=== PATIENT | male | born 1995 | race Caucasian/White ===

== ENCOUNTER 2016-12-16 06:00 | Emergency (ER) | payer SELFPAY ==
--- NOTE | 2016-12-16 06:29 | ED Physician Chart ---
Chief Complaint/HPI - Patient Information Date Seen:: 12/16/16 Time Seen:: 06:10 Chief Complaint:: Back pain History of Present Illness:: 21-year-old male with history of low back pain and slipped disc confirmed on MRI last year, complains of acute, constant, worsening, aching, radiating to the left leg, low back pain that started yesterday. Denies any mechanism of injury. Hasn't taken anything for the pain. Denies numbness, tingling, urinary or fecal incontinence, urinary or fecal retention, fevers. Allergies:: Allergies Allergy/AdvReac Type Severity Reaction Status Date / Time No Known Allergies Allergy Verified 02/27/16 16:58 Historian:: Patient Review:: Nurse's Note Reviewed Review of Systems - Review of Systems Other: Complete system review otherwise unremarkable except as noted in history of present illness. Past Medical History - Past Medical History Past Medical History: Other (low back pain (slipped disc)) Family History: None Social History: Non Smoker, No Alcohol, No Drug Use, Employed Surgical History: None Psychiatricy History: None Medication: None Family Medical History - Family Member Mother History Unknown: Yes Ethnicity: Physical Exam - Physical Examination Other:: INITIAL VITAL SIGNS: Reviewed by me GENERAL: Alert and interactive. No acute distress HEAD: Head is normocephalic and atraumatic EYES: EOMI. PERRL. No scleral icterus. No conjunctival injection ENT: Moist mucous membranes. NECK: Supple. No masses. Full range of motion RESPIRATORY: No tachypnea. Clear breath sounds bilaterally. No wheezing, rales, or rhonchi CV: Regular rate and rhythm. No murmurs, rubs, or gallops ABDOMEN: Soft, non-distended, non-tender. No guarding. No rebound. No masses. EXTREMITIES: No deformity. No cyanosis. No edema. SKIN: Warm and dry. No obvious rashes. NEUROLOGIC: Alert and oriented. Face is symmetric. Speech is normal. Moves all extremities equally. Motor and sensory distally intact. ED Septic Shock - . Is Septic Shock (SBP<90, OR Lactate>4 mmol\L) present?: No Reassessment (Disposition) - Reassessment Reassessment:: Patient apparently has had MRI done last year showing bulging disc/slipped disc. He says he's had similar pain last year. There is no mechanism of injury. I offered imaging the patient declined. Given intramuscular Toradol and Decadron. Given prescription for ibuprofen. Recommend follow-up with primary care for possible physical therapy. Work excuse given. Return to ER precautions given. Patient says he understands and agrees. Blood pressure was noted to be elevated over 120/80. There were no signs of hypertension. Discussed the findings with the patient and recommended that the patient follow up with the primary care physician regarding the elevated blood pressure. Reassessment Condition:: Improved - Diagnosis Diagnosis:: Acute low back pain/sciatica radiating down left leg Elevated blood pressure without the diagnosis of hypertension - Aftercare/Follow up Instructions Aftercare/Follow-Up Instructions:: Counseled pt regarding lab results/diagnosis & need follow up, Refer to Discharge Instructions Medication Prescribed:: Ibuprofen - Patient Disposition Discharge/Transfer:: Home Time:: 06:36 Condition at Disposition:: Improved ED Discharge Plan - Patient Disposition Admit/Discharge/Transfer: PT DISCHARGED HOME Condition at Disposition: Improved Instructions: Sciatica, [id number]
[2016-12-16] MEDS ORDERED: Dexamethasone Sodium Phos 10 mg/mL PF Vial ONE (06:37)
[2016-12-16] MEDS: Dexamethasone Sodium Phos 4 mg/mL Vial IM STA (06:45)
== END 2016-12-16 07:04 | disposition home or self-care (01) ==
LOC: ER 06:00
DX: M54.5 Low back pain (principal); R03.0 Elevated blood-pressure reading, without diagnosis of hypertension
CPT/HCPCS: 99284; 96372 ×2; J1885; Z7502

== ENCOUNTER 2017-02-23 07:58 | Emergency (ER) | payer MEDICAID ==
--- NOTE | 2017-02-23 08:25 | ED Physician Chart ---
ED Chief Complaint/HPI - Patient Information Date Seen:: 02/23/17 Time Seen:: 08:20 Chief Complaint:: pharyngitis, cold symptoms History of Present Illness:: location: general quality: pharyngitis severity: mild duration: couple of days context: pt with cold symptoms for last few days. mild sore throat since yesterday. girlfriend was diagnosed with strep throat and given antibiotics. says he has kissed her several times when she had active infection and he now feels like he is having the same symptoms. some rhinorrhea. mild sore throat. no other pain complaints. mod factors: none assoc s/s: none hx from pt Allergies:: Allergies Allergy/AdvReac Type Severity Reaction Status Date / Time No Known Allergies Allergy Verified 02/23/17 08:17 Historian:: Patient Review:: Nurse's Note Reviewed ED Review of Systems - Review of Systems General/Constitutional: No fever, No chills, No weight loss, No weakness, No diaphoresis, No edema, No loss of appetite Skin: No skin lesions, No rash, No bruising Head: No headache, No light-headedness Eyes: No loss of vision, No pain, No diplopia ENT: No earache, No nasal drainage, Sore throat, No tinnitus Neck: No neck pain, No swelling, No thyromegaly, No stiffness, No mass noted Cardio Vascular: No chest pain, No palpitations, No PND, No orthopnea, No edema Pulmonary: No SOB, No cough, No sputum, No wheezing GI: No nausea, No vomiting, No diarrhea, No pain, No melena, No hematochezia, No constipation, No hematemesis G/U: No dysuria, No frequency, No hematuria Musculoskeletal: No bone or joint pain, No back pain, No muscle pain Endocrine: No polyuria, No polydipsia Psychiatric: No prior psych history, No depression, No anxiety, No suicidal ideation Hematopoietic: No bruising, No lymphadenopathy Allergic/Immuno: No urticaria, No angioedema Neurological: No syncope, No focal symptoms, No weakness, No paresthesia, No headache, No seizure, No dizziness, No confusion, No vertigo ED Past Medical History - Past Medical History Past Medical History: No significant medical hx Family History: None Social History: Smoker, No Alcohol, No Drug Use, Single, Lives With Parents Surgical History: None Psychiatricy History: None Medication: None Family Medical History - Family Member Mother History Unknown: Yes Ethnicity: ED Physical Exam - Physical Examination General/Constitutional: Awake, Well-developed, well-nourished, Alert, No distress, GCS 15, Non-toxic appearing, Ambulatory Head: Atraumatic Eyes: Lids, conjuctiva normal, PERRL, EOMI Skin: Nl inspection, No rash, No skin lesions, No ecchymosis, Well hydrated, No lymphadenopathy ENMT: External ears, nose nl, Nasal exam nl, Lips, teeth, gums nl, Oropharynx nl (mild erythema at oropharynx, no tonsillar enlargement, no exudate) Neck: Nontender, Full ROM w/o pain, No JVD, No nuchal rigidity, No bruit, No mass (no lymph nodes at neck), No stridor Respiratory: Nl effort/Exclusion, Clear to Auscultation, No Wheeze/Rhonchi/Rales Cardio Vascular: RRR, No murmur, gallop, rubs, NL S1 S2 GI: No tenderness/rebounding/guarding : No CVA tenderness Extremities: No tenderness or effusion, Full ROM, normal strength in all extremities, No edema, Normal digits & nails Neuro/Psych: Alert/oriented Misc: Normal back, No paraspinal tenderness ED Assessment - Assessment General Assessment: pt stable while in ER medical decision making: pt with URI symptoms at this time his symptoms do not show obvious/overt signs of strep throat. pt with exposure to pt with strep throat. will give therapeutic course of pencillin as pt has had close contact with girlfriend with strep throat. girlfriend began treatment one or two days ago. now pt with what he says are developing symptoms. pt is advised to FU closely with primary care physician. pt says she understands and will follow up. ED Septic Shock - . Is Septic Shock (SBP<90, OR Lactate>4 mmol\L) present?: No ED Reassessment (Disposition) - Reassessment Reassessment Condition:: Unchanged - Aftercare/Follow up Instructions Aftercare/Follow-Up Instructions:: Counseled pt regarding lab results/diagnosis & need follow up Medication Prescribed:: penicillin 500mg po TID x 10 days - Patient Disposition Discharge/Transfer:: Home Condition at Disposition:: Stable
== END 2017-02-23 08:50 | disposition home or self-care (01) ==
LOC: ER 07:58
DX: J02.9 Acute pharyngitis, unspecified (principal); F17.200 Nicotine dependence, unspecified, uncomplicated
CPT/HCPCS: Z7502

== ENCOUNTER 2017-06-22 10:01 | Emergency (ER) | payer MEDICAID ==
[2017-06-22] MEDS ORDERED: Acetaminophen 500 MG TAB PO ONE (10:17)
[2017-06-22] MEDS ORDERED: Acetaminophen 500 MG TAB ONE (10:24)
--- NOTE | 2017-06-22 10:24 | ED Physician Chart ---
ED Chief Complaint/HPI - Patient Information Date Seen:: 06/22/17 Time Seen:: 10:20 Chief Complaint:: HEAD TRAUMA History of Present Illness:: THIS IS A 22 YO MALE WHO STATES THAT HE SUSTAINED AN INJURY TO THE BACK OF HIS HEAD WHILE WORKING LAST NIGHT. HE DENIES LOC BUT HAS SOME DIZZINESS AND PAIN IN THE AREA OF THE LUMP HE NOW HAS ON THE BACK OF HIS HEAD. HE DENIES ALL OTHER MEDICAL PROBLEMS. Allergies:: Allergies Allergy/AdvReac Type Severity Reaction Status Date / Time No Known Allergies Allergy Verified 02/23/17 08:17 Vitals:: Vital Signs - 8 hr 06/22/17 10:13 Temp 98.1 F HR 64 RR 16 BP 129/87 O2 Sat % 99 Historian:: Patient Review:: Nurse's Note Reviewed ED Review of Systems - Review of Systems General/Constitutional: No fever, No chills, No weight loss, No weakness, No diaphoresis, No edema, No loss of appetite Skin: No skin lesions, No rash, No bruising Head: No headache, Light headed Eyes: No loss of vision, No pain, No diplopia ENT: No earache, No nasal drainage, No sore throat, No tinnitus Neck: No neck pain, No swelling, No thyromegaly, No stiffness, No mass noted Cardio Vascular: No chest pain, No palpitations, No PND, No orthopnea, No edema Pulmonary: No SOB, No cough, No sputum, No wheezing GI: No nausea, No vomiting, No diarrhea, No pain, No melena, No hematochezia, No constipation, No hematemesis G/U: No dysuria, No frequency, No hematuria Musculoskeletal: No bone or joint pain, No back pain, No muscle pain Endocrine: No polyuria, No polydipsia Psychiatric: No prior psych history, No depression, No anxiety, No suicidal ideation Hematopoietic: No bruising, No lymphadenopathy Allergic/Immuno: No urticaria, No angioedema Neurological: No syncope, No focal symptoms, No weakness, No paresthesia, No headache, No seizure, No dizziness, No confusion, No vertigo ED Past Medical History - Past Medical History Obtainable: Yes Past Medical History: No significant medical hx Family History: None Social History: Smoker, Alcohol, Illicit Drug Use, Employed Surgical History: None Psychiatricy History: None Medication: Reviewed Family Medical History - Family Member Mother History Unknown: Yes Ethnicity: Living Status: Still Living ED Physical Exam - Physical Examination General/Constitutional: Awake, Well-developed, well-nourished, Alert, No distress, GCS 15, Non-toxic appearing, Ambulatory Head: Atraumatic (THERE IS A SMALL TENDER HEMATOMA OVER THE POSTERIOR PARIETAL AREA OF THE HEAD.) Eyes: Lids, conjuctiva normal, PERRL, EOMI Skin: Nl inspection, No rash, No skin lesions, No ecchymosis, Well hydrated, No lymphadenopathy ENMT: External ears, nose nl, Nasal exam nl, Lips, teeth, gums nl Neck: Nontender, Full ROM w/o pain, No JVD, No nuchal rigidity, No bruit, No mass, No stridor Respiratory: Nl effort/Exclusion, Clear to Auscultation, No Wheeze/Rhonchi/Rales Cardio Vascular: RRR, No murmur, gallop, rubs, NL S1 S2 GI: No tenderness/rebounding/guarding, No organomegaly, No hernia, Normal BS's, Nondistended, No mass/bruits, No McBurney tenderness : No CVA tenderness Extremities: No tenderness or effusion, Full ROM, normal strength in all extremities, No edema, Normal digits & nails Neuro/Psych: Alert/oriented, DTR's symmetric, Normal sensory exam, Normal motor strength, Judgement/insight normal, Mood normal, Normal gait, No focal deficits Misc: Normal back, No paraspinal tenderness ED Assessment - Assessment General Assessment: CONTUSION OF THE HEAD ED Septic Shock - . Is Septic Shock (SBP<90, OR Lactate>4 mmol\L) present?: No - <6hrs of presentation: Vital Signs: Vital Signs - 8 hr 06/22/17 10:13 Temp 98.1 F HR 64 RR 16 BP 129/87 O2 Sat % 99 ED Reassessment (Disposition) - Reassessment Reassessment:: CONTUSION OF THE HEAD - Aftercare/Follow up Instructions Aftercare/Follow-Up Instructions:: Counseled pt regarding lab results/diagnosis & need follow up, Refer to Discharge Instructions, Counseled pt & family regarding lab results/diagnosis & need follow up - Patient Disposition Discharge/Transfer:: Home Condition at Disposition:: Improved ED Discharge Plan - Patient Disposition Admit/Discharge/Transfer: PT DISCHARGED HOME Condition at Disposition: Improved
[2017-06-22 10:47] LABS: URINE MICROSCOPIC INDICATED? YES; URINE SOURCE CLEAN C
[2017-06-22 10:50] LABS: % EOSINOPHILS 0.7 % (0.0-5.0); % LYMPHOCYTES 23.2 % (20.0-50.0); % MONOCYTES 10.1 % (2.0-10.0); BASOPHILE ABSOLUTE 0.1 Th/cumm (0-0.2); HEMATOCRIT 42.1 % (41.0-60); HEMOGLOBIN 14.6 gm/dL (12-16); LYMPHOCYTE ABSOLUTE 1.4 Th/cmm (1.5-3.0); MEAN CORPUSCULAR HEMOGLOBIN 30.1 pg (26.0-30.0); MEAN CORPUSCULAR HGB CONC 34.6 pg (28.0-36.0); MEAN PLATELET VOLUME 10.3 fl; MONOCYTE ABSOLUTE 0.6 Th/cmm (0.3-1.0); NEUTROPHILE ABSOLUTE 4.1 Th/cmm (1.8-8.0); PLATELET COUNT 138 Th/cmm (150-400); RED BLOOD COUNT 4.85 Mil/cmm (4.30-5.70); RED CELL DISTRIBUTION WIDTH 11.5 % (11.5-20.0); WHITE BLOOD COUNT 6.2 Th/cmm (4.8-10.8)
[2017-06-22 10:58] LABS: URINE BILIRUBIN NEGATIVE (NEGATIVE); URINE BLOOD NEGATIVE (NEGATIVE); URINE GLUCOSE (UA) NEGATIVE (NEGATIVE); URINE KETONE NEGATIVE (NEGATIVE); URINE LEUKOCYTE ESTERASE NEGATIVE (NEGATIVE); URINE NITRATE NEGATIVE (NEGATIVE); URINE PH 6.5 (4.6 - 8.0); URINE PROTEIN NEGATIVE (NEGATIVE)
[2017-06-22 10:59] LABS: URINE CLARITY CLEAR (CLEAR); URINE COLOR YELLOW
[2017-06-22 11:06] LABS: URINE BACTERIA FEW /hpf (NONE SEEN); URINE EPITHELIAL CELLS OCCASIONAL /lpf (FEW); URINE RBC NONE SEEN /hpf (0-5); URINE WBC 0-2 /hpf (0-5)
[2017-06-22 11:07] LABS: ALB/GLOB RATIO 1.9 (1.0-1.8); ALBUMIN 4.6 gm/dL (4.2-5.5); ALKALINE PHOSPHATASE 67 U/L (34-104); BILIRUBIN,TOTAL 1.5 mg/dL (0.3-1.0); BUN - UREA NITROGEN 11 mg/dL (7-25); CALCIUM SERUM 9.2 mg/dL (8.6-10.3); CHLORIDE 105 mEq/L (98-107); CREATININE - SERUM 0.6 mg/dL (0.7-1.3); GFR AFRICAN-AMERICAN > 60.0 ml/min (>90); GFR NON AFRICAN-AMERICAN > 60.0 ml/min; GLUCOSE 99 mg/dL (70-105); SGOT 14 U/L (13-39); SGPT/ALT 11 U/L (7-52); SODIUM SERUM 137 mEq/L (136-145)
[2017-06-22 11:50] LABS: AMPHETAMINE URINE NEGATIVE (NEGATIVE); BARBITURATES URINE NEGATIVE (NEGATIVE); BENZODIAZEPINES QUAL URINE NEGATIVE (NEGATIVE); CANNABINOID THC POSITIVE (NEGATIVE); COCAINE METABOLITE QUAL URINE NEGATIVE (NEGATIVE); METHADONE URINE NEGATIVE (NEGATIVE); METHAMPHETAMINES QUAL URINE NEGATIVE (NEGATIVE); OPIATES (MORPHINE) QUAL. URINE NEGATIVE (NEGATIVE); PHENCYCLIDINE (PCP) URINE NEGATIVE (NEGATIVE); TRICYCLICS (TCA) QUAL. URINE NEGATIVE (NEGATIVE)
--- NOTE | 2017-06-23 10:57 | Diagnostic Imaging Report ---
CT scan of the brain without contrast History: Trauma Total DLP equals 533 CTDI equals 29.1 Axial sections were obtained from the base of the skull to the vertex. There is a normal ventricular system size. No focal parenchymal lesions are seen. No evidence of any mass effect or shift of midline structures. No extra-axial masses or abnormal fluid collections. Impression: Negative examination.
== END 2017-06-22 12:15 | disposition home or self-care (01) ==
LOC: ER 10:01
DX: S00.93XA Contusion of unspecified part of head, initial encounter (principal); X58.XXXA Exposure to other specified factors, initial encounter; Y93.89 Activity, other specified; Y92.89 Other specified places as the place of occurrence of the external cause; Y99.8 Other external cause status
CPT/HCPCS: 36415-UA; 70450-TC; 80053-TC; 80307; 81001-TC; 84443-TC; 85025-TC; Z7610

== ENCOUNTER 2017-06-22 23:37 | Emergency (ER) | payer MEDICAID ==
--- NOTE | 2017-06-23 01:10 | ED Physician Chart ---
ED Chief Complaint/HPI - Patient Information Date Seen:: 06/23/17 Time Seen:: 00:30 Chief Complaint:: VOMITING History of Present Illness:: THIS IS A 22 YR MALE WHO WAS SEEN EARLY YESTERDAY IN THIS ER COMPLAINING OF HEAD PAIN FROM HITTING HIS HEAD WHILE WORKING AT [employer]. HE STATES THAT NOW HE IS CONCERNED ABOUT VOMITING AND LEFT LOWER BACK PAIN. HE STATES THAT HE HAD TACOS AND CASADIAS BEFORE VOMITING THIS MORNING. Allergies:: Allergies Allergy/AdvReac Type Severity Reaction Status Date / Time No Known Allergies Allergy Verified 06/23/17 00:12 Vitals:: Vital Signs - 8 hr 06/23/17 00:15 Temp 97.8 F HR 70 RR 18 BP 125/79 O2 Sat % 98 Historian:: Patient Review:: Nurse's Note Reviewed, Old Chart Reviewed ED Review of Systems - Review of Systems General/Constitutional: No fever, No chills, No weight loss, No weakness, No diaphoresis, No edema, No loss of appetite Skin: No skin lesions, No rash, No bruising Head: Headache, No light-headedness Eyes: No loss of vision, No pain, No diplopia ENT: No earache, No nasal drainage, No sore throat, No tinnitus Neck: No neck pain, No swelling, No thyromegaly, No stiffness, No mass noted Cardio Vascular: No chest pain, No palpitations, No PND, No orthopnea, No edema Pulmonary: No SOB, No cough, No sputum, No wheezing GI: Nausea, Vomiting, No diarrhea, No pain, No melena, No hematochezia, No constipation, No hematemesis G/U: No dysuria, No frequency, No hematuria Musculoskeletal: No bone or joint pain, Back pain, No muscle pain Endocrine: No polyuria, No polydipsia Psychiatric: No prior psych history, No depression, No anxiety, No suicidal ideation Hematopoietic: No bruising, No lymphadenopathy Allergic/Immuno: No urticaria, No angioedema Neurological: No syncope, No focal symptoms, No weakness, No paresthesia, No headache, No seizure, No dizziness, No confusion, No vertigo ED Past Medical History - Past Medical History Obtainable: Yes Past Medical History: No significant medical hx Family History: None Social History: Non Smoker, No Alcohol, No Drug Use, Employed Surgical History: None Psychiatricy History: None Medication: Reviewed Family Medical History - Family Member Mother History Unknown: Yes Ethnicity: Living Status: Still Living Hx Family Cancer: No Hx Family Coronary Artery Disease: No Hx Family Congestive Heart Failure: No Hx Family Hypertension: No Hx Family Stroke: No Hx Family Diabetes: No Hx Family Seizures: No Hx Family Dementia: No Hx Family HIV: No Hx Family Hepatitis: No Hx Family Psychiatric Problems: No ED Physical Exam - Physical Examination General/Constitutional: Awake, Well-developed, well-nourished, Alert, No distress, GCS 15, Non-toxic appearing, Ambulatory Head: Atraumatic Eyes: Lids, conjuctiva normal, PERRL, EOMI Skin: Nl inspection, No rash, No skin lesions, No ecchymosis, Well hydrated, No lymphadenopathy ENMT: External ears, nose nl, Nasal exam nl, Lips, teeth, gums nl Neck: Nontender, Full ROM w/o pain, No JVD, No nuchal rigidity, No bruit, No mass, No stridor Respiratory: Nl effort/Exclusion, Clear to Auscultation, No Wheeze/Rhonchi/Rales Cardio Vascular: RRR, No murmur, gallop, rubs, NL S1 S2 GI: No tenderness/rebounding/guarding, No organomegaly, No hernia, Normal BS's, Nondistended, No mass/bruits, No McBurney tenderness : No CVA tenderness Extremities: No tenderness or effusion, Full ROM, normal strength in all extremities, No edema, Normal digits & nails Neuro/Psych: Alert/oriented, DTR's symmetric, Normal sensory exam, Normal motor strength, Judgement/insight normal, Mood normal, Normal gait, No focal deficits Misc: Normal back, No paraspinal tenderness ED Labs/Radiology/EKG Results - Lab Results Results: Abnormal Lab Results 06/23/17 06/23/17 06/23/17 01:05 01:05 01:13 WBC 9.1 D RBC 4.73 Hgb 14.1 Hct 41.5 MCV 87.7 MCH 29.9 MCHC Differential 34.1 RDW 11.5 Plt Count 147 L MPV 11.7 Neutrophils % 67.4 Lymphocytes % 20.7 Monocytes % 10.3 H Eosinophils % 1.3 Basophils % 0.3 Sodium Potassium Chloride Carbon Dioxide Anion Gap BUN Creatinine Est GFR ( Amer) Est GFR (Non-Af Amer) BUN/Creatinine Ratio Glucose Calcium Total Bilirubin AST ALT Alkaline Phosphatase Total Protein Albumin Globulin Albumin/Globulin Ratio Urine Source CLEAN C Urine Color YELLOW Urine Clarity SLIGHT CLOUDY Urine pH 7.0 Ur Specific [place] 1.015 Urine Protein NEGATIVE Urine Glucose (UA) NEGATIVE Urine Ketones NEGATIVE Urine Blood SMALL H Urine Nitrate NEGATIVE Urine Bilirubin NEGATIVE Urine Urobilinogen 0.2 Ur Leukocyte Esterase NEGATIVE Urine RBC 10-25 H Urine WBC 2-5 H Ur Epithelial Cells RARE Uric Acid Crystals FEW Amorphous Sediment MODERATE PHOSPHATES Urine Bacteria FEW Urine Opiates Screen NEGATIVE Urine Methadone Screen NEGATIVE Ur Barbiturates Screen NEGATIVE Ur Tricyclics Screen NEGATIVE Ur Phencyclidine Scrn NEGATIVE Amphetamines Screen NEGATIVE U Methamphetamines Scrn NEGATIVE U Benzodiazepines Scrn NEGATIVE U Cocaine Metab Screen NEGATIVE U Cannabinoids Screen POSITIVE H 06/23/17 01:13 WBC RBC Hgb Hct MCV MCH MCHC Differential RDW Plt Count MPV Neutrophils % Lymphocytes % Monocytes % Eosinophils % Basophils % Sodium 137 Potassium 4.1 Chloride 106 Carbon Dioxide 25.2 Anion Gap 9.9 BUN 18 Creatinine 0.9 Est GFR ( Amer) > 60.0 Est GFR (Non-Af Amer) > 60.0 BUN/Creatinine Ratio 20.0 Glucose 94 Calcium 9.0 Total Bilirubin 0.9 AST 13 ALT 10 Alkaline Phosphatase 69 Total Protein 6.6 Albumin 4.3 Globulin 2.3 Albumin/Globulin Ratio 1.9 H Urine Source Urine Color Urine Clarity Urine pH Ur Specific [place] Urine Protein Urine Glucose (UA) Urine Ketones Urine Blood Urine Nitrate Urine Bilirubin Urine Urobilinogen Ur Leukocyte Esterase Urine RBC Urine WBC Ur Epithelial Cells Uric Acid Crystals Amorphous Sediment Urine Bacteria Urine Opiates Screen Urine Methadone Screen Ur Barbiturates Screen Ur Tricyclics Screen Ur Phencyclidine Scrn Amphetamines Screen U Methamphetamines Scrn U Benzodiazepines Scrn U Cocaine Metab Screen U Cannabinoids Screen - Radiology Results Results: lumbo sacral spine x-ray = nad ED Assessment - Assessment General Assessment: HEMATURIA POSSBLE RENAL STONE ED Septic Shock - . Is Septic Shock (SBP<90, OR Lactate>4 mmol\L) present?: No - <6hrs of presentation: Vital Signs: Vital Signs - 8 hr 06/23/17 00:15 Temp 97.8 F HR 70 RR 18 BP 125/79 O2 Sat % 98 ED Reassessment (Disposition) - Reassessment Reassessment:: RENAL STONE Reassessment Condition:: Improved - Diagnosis Diagnosis:: HEMATURIA RENAL STONE - Aftercare/Follow up Instructions Aftercare/Follow-Up Instructions:: Counseled pt regarding lab results/diagnosis & need follow up, Refer to Discharge Instructions, Counseled pt & family regarding lab results/diagnosis & need follow up - Patient Disposition Discharge/Transfer:: Home Condition at Disposition:: Improved ED Discharge Plan - Patient Disposition Admit/Discharge/Transfer: PT DISCHARGED HOME Condition at Disposition: Improved
[2017-06-23 01:28] LABS: % BASOPHILS 0.3 % (0.0-2.0); % EOSINOPHILS 1.3 % (0.0-5.0); % LYMPHOCYTES 20.7 % (20.0-50.0); % MONOCYTES 10.3 % (2.0-10.0); % NEUTROPHILS 67.4 % (40.0-80.0); EOSINOPHILE ABSOLUTE 0.1 Th/cmm (0.1-0.4); HEMATOCRIT 41.5 % (41.0-60); HEMOGLOBIN 14.1 gm/dL (12-16); LYMPHOCYTE ABSOLUTE 1.9 Th/cmm (1.5-3.0); MEAN CELL VOLUME 87.7 fl (80-99); MEAN CORPUSCULAR HEMOGLOBIN 29.9 pg (26.0-30.0); MEAN CORPUSCULAR HGB CONC 34.1 pg (28.0-36.0); MEAN PLATELET VOLUME 11.7 fl; MONOCYTE ABSOLUTE 0.9 Th/cmm (0.3-1.0); NEUTROPHILE ABSOLUTE 6.2 Th/cmm (1.8-8.0); PLATELET COUNT 147 Th/cmm (150-400); RED BLOOD COUNT 4.73 Mil/cmm (4.30-5.70); RED CELL DISTRIBUTION WIDTH 11.5 % (11.5-20.0); WHITE BLOOD COUNT 9.1 Th/cmm (4.8-10.8)
[2017-06-23 01:46] LABS: URINE MICROSCOPIC INDICATED? YES; URINE SOURCE CLEAN C
[2017-06-23 01:50] LABS: ALB/GLOB RATIO 1.9 (1.0-1.8); ALBUMIN 4.3 gm/dL (4.2-5.5); ALKALINE PHOSPHATASE 69 U/L (34-104); ANION GAP 9.9 (7.0-16.0); BILIRUBIN,TOTAL 0.9 mg/dL (0.3-1.0); BUN - UREA NITROGEN 18 mg/dL (7-25); CARBON DIOXIDE 25.2 mEq/L (21.0-31.0); CHLORIDE 106 mEq/L (98-107); CREATININE - SERUM 0.9 mg/dL (0.7-1.3); GFR AFRICAN-AMERICAN > 60.0 ml/min (>90); GFR NON AFRICAN-AMERICAN > 60.0 ml/min; GLUCOSE 94 mg/dL (70-105); POTASSIUM SERUM 4.1 mEq/L (3.5-5.1); SGOT 13 U/L (13-39); SGPT/ALT 10 U/L (7-52); SODIUM SERUM 137 mEq/L (136-145); TOTAL PROTEIN,SERUM 6.6 gm/dL (6.0-8.3)
[2017-06-23 01:51] LABS: URINE BILIRUBIN NEGATIVE (NEGATIVE); URINE BLOOD SMALL (NEGATIVE); URINE GLUCOSE (UA) NEGATIVE (NEGATIVE); URINE KETONE NEGATIVE (NEGATIVE); URINE LEUKOCYTE ESTERASE NEGATIVE (NEGATIVE); URINE NITRATE NEGATIVE (NEGATIVE); URINE PROTEIN NEGATIVE (NEGATIVE); URINE UROBILINOGEN 0.2 E.U./dL (0.2 - 1.0)
[2017-06-23 01:55] LABS: URINE COLOR YELLOW
[2017-06-23 01:56] LABS: URINE CLARITY SLIGHT CLOUDY (CLEAR)
[2017-06-23 01:57] LABS: URINE BACTERIA FEW /hpf (NONE SEEN); URINE EPITHELIAL CELLS RARE /lpf (FEW)
[2017-06-23 01:58] LABS: URINE AMORPHOUS SEDIMENT MODERATE PHOSPHATES (NONE SEEN)
[2017-06-23 02:10] LABS: AMPHETAMINE URINE NEGATIVE (NEGATIVE); BARBITURATES URINE NEGATIVE (NEGATIVE); BENZODIAZEPINES QUAL URINE NEGATIVE (NEGATIVE); CANNABINOID THC POSITIVE (NEGATIVE); COCAINE METABOLITE QUAL URINE NEGATIVE (NEGATIVE); METHADONE URINE NEGATIVE (NEGATIVE); METHAMPHETAMINES QUAL URINE NEGATIVE (NEGATIVE); OPIATES (MORPHINE) QUAL. URINE NEGATIVE (NEGATIVE); PHENCYCLIDINE (PCP) URINE NEGATIVE (NEGATIVE); TRICYCLICS (TCA) QUAL. URINE NEGATIVE (NEGATIVE)
--- NOTE | 2017-06-23 10:20 | Diagnostic Imaging Report ---
Exam: Lumbar sacral spine. HISTORY: Back pain. Findings: Views of lumbar sacral spine reviewed. The study demonstrates no evidence of fracture dislocation. The vertebral bodies of normal height with preserved intervertebral disc spaces. There is no evidence of spondylolysis or spondylolisthesis. No prevertebral soft tissue swelling is noted. IMPRESSION: Unremarkable examination of lumbosacral spine.
== END 2017-06-23 02:53 | disposition home or self-care (01) ==
LOC: ER 23:37
DX: R31.9 Hematuria, unspecified (principal); N20.0 Calculus of kidney
CPT/HCPCS: 99285; 96372 ×2; 36415; 80307; 85025; 80053; 72110; 81001; J1885; J0696

== ENCOUNTER 2017-10-15 22:11 | Emergency (ER) | payer MEDICAID ==
--- NOTE | 2017-10-15 22:51 | ED Physician Chart ---
ED Chief Complaint/HPI - Patient Information Date Seen:: 10/15/17 Time Seen:: 22:46 Chief Complaint:: Abdominal pain History of Present Illness:: 22 yo male had lower abdominal pain for 2 hours, without nausea or vomiting. Patient also stated bilateral scrotal pain and swelling. No fever. Patient was sexually active with his girlfriend. His last unprotected sexually intercourse was 3 days ago. Allergies:: Allergies Allergy/AdvReac Type Severity Reaction Status Date / Time No Known Allergies Allergy Verified 10/15/17 22:23 Vitals:: Vital Signs - 8 hr 10/15/17 22:20 Temp 97.9 F HR 80 RR 18 BP 121/70 O2 Sat % 98 ED Review of Systems - Review of Systems General/Constitutional: No fever Skin: No bruising Head: No headache Eyes: No pain ENT: No nasal drainage Neck: No neck pain Cardio Vascular: No chest pain Pulmonary: No SOB GI: No nausea, No vomiting Musculoskeletal: No bone or joint pain Neurological: No focal symptoms ED Past Medical History - Past Medical History Past Medical History: No significant medical hx Social History: Smoker, Alcohol, Illicit Drug Use (marijuana) Surgical History: None Family Medical History - Family Member Mother History Unknown: Yes Ethnicity: Living Status: Still Living Hx Family Cancer: No Hx Family Coronary Artery Disease: No Hx Family Congestive Heart Failure: No Hx Family Hypertension: No Hx Family Stroke: No Hx Family Diabetes: No Hx Family Seizures: No Hx Family Dementia: No Hx Family HIV: No Hx Family Hepatitis: No Hx Family Psychiatric Problems: No ED Physical Exam - Physical Examination General/Constitutional: Awake Head: Atraumatic Eyes: PERRL Skin: No ecchymosis ENMT: Nasal exam nl Neck: No nuchal rigidity Respiratory: No Wheeze/Rhonchi/Rales Cardio Vascular: RRR, No murmur, gallop, rubs, NL S1 S2 Other GI comments:: tenderness in suprapubic area Other comments:: No scrotal edema or nodule Extremities: normal strength in all extremities Neuro/Psych: No focal deficits ED Labs/Radiology/EKG Results - Lab Results Results: Laboratory Last Values WBC 8.6 Th/cmm (4.8-10.8) 10/15/17 23:00 RBC 4.80 Mil/cmm (4.30-5.70) 10/15/17 23:00 Hgb 14.6 gm/dL (12-16) 10/15/17 23:00 Hct 42.8 % (41.0-60) 10/15/17 23:00 MCV 89.3 fl (80-99) 10/15/17 23:00 MCH 30.5 pg (26.0-30.0) H 10/15/17 23:00 MCHC Differential 34.2 pg (28.0-36.0) 10/15/17 23:00 RDW 12.2 % (11.5-20.0) 10/15/17 23:00 Plt Count 187 Th/cmm (150-400) 10/15/17 23:00 MPV 10.8 fl 10/15/17 23:00 Neutrophils % 63.6 % (40.0-80.0) 10/15/17 23:00 Lymphocytes % 22.6 % (20.0-50.0) 10/15/17 23: Monocytes % 11.7 % (2.0-10.0) H 10/15/17 23: Eosinophils % 1.3 % (0.0-5.0) 10/15/17 23: Basophils % 0.8 % (0.0-2.0) 10/15/17 23:00 Sodium 139 mEq/L (136-145) 10/15/17 23:00 Potassium 4.2 mEq/L (3.5-5.1) 10/15/17 23:00 Chloride 105 mEq/L (98-107) 10/15/17 23: Carbon Dioxide 27.3 mEq/L (21.0-31.0) 10/15/17 23:00 Anion Gap 10.9 (7.0-16.0) 10/15/17 23:00 BUN 16 mg/dL (7-25) 10/15/17 23:00 Creatinine 0.8 mg/dL (0.7-1.3) 10/15/17 23:00 Est GFR ( Amer) > 60.0 ml/min (>90) 10/15/17 23: Est GFR (Non-Af Amer) > 60.0 ml/min 10/15/17 23:00 BUN/Creatinine Ratio 20.0 10/15/17 23: Glucose 84 mg/dL (70-105) 10/15/17 23:00 Calcium 8.9 mg/dL (8.6-10.3) 10/15/17 23:00 Total Bilirubin 0.4 mg/dL (0.3-1.0) 10/15/17 23:00 AST 12 U/L (13-39) L 10/15/17 23:00 ALT 10 U/L (7-52) 10/15/17 23:00 Alkaline Phosphatase 58 U/L (34-104) 10/15/17 23:00 Total Protein 6.6 gm/dL (6.0-8.3) 10/15/17 23:00 Albumin 4.1 gm/dL (4.2-5.5) L 10/15/17 23:00 Globulin 2.5 gm/dL 10/15/17 23:00 Albumin/Globulin Ratio 1.6 (1.0-1.8) 10/15/17 23:00 Lipase 31 U/L (11-82) 10/15/17 23:00 Urine Source RANDOM 10/15/17 22:45 Urine Color YELLOW 10/15/17 22:45 Urine Clarity CLEAR (CLEAR) 10/15/17 22:45 Urine pH 6.5 (4.6 - 8.0) 10/15/17 22:45 Ur Specific Imperial 1.025 (1.005-1.030) 10/15/17 22:45 Urine Protein NEGATIVE mg/dL (NEGATIVE) 10/15/17 22:45 Urine Glucose (UA) NEGATIVE mg/dL (NEGATIVE) 10/15/17 22:45 Urine Ketones NEGATIVE mg/dL (NEGATIVE) 10/15/17 22:45 Urine Blood NEGATIVE (NEGATIVE) 10/15/17 22:45 Urine Nitrate NEGATIVE (NEGATIVE) 10/15/17 22:45 Urine Bilirubin NEGATIVE (NEGATIVE) 10/15/17 22:45 Urine Urobilinogen 1.0 E.U./dL (0.2 - 1.0) 10/15/17 22:45 Ur Leukocyte Esterase NEGATIVE (NEGATIVE) 10/15/17 22:45 Urine RBC NONE SEEN /hpf (0-5) 10/15/17 22:45 Urine WBC 0-2 /hpf (0-5) 10/15/17 22:45 Ur Epithelial Cells OCCASIONAL /lpf (FEW) 10/15/17 22:45 Urine Bacteria OCCASIONAL /hpf (NONE SEEN) 10/15/17 22:45 Urine Opiates Screen NEGATIVE (NEGATIVE) 10/15/17 22:45 Urine Methadone Screen NEGATIVE (NEGATIVE) 10/15/17 22:45 Ur Barbiturates Screen NEGATIVE (NEGATIVE) 10/15/17 22:45 Ur Tricyclics Screen NEGATIVE (NEGATIVE) 10/15/17 22:45 Ur Phencyclidine Scrn NEGATIVE (NEGATIVE) 10/15/17 22:45 Amphetamines Screen NEGATIVE (NEGATIVE) 10/15/17 22:45 U Methamphetamines Scrn NEGATIVE (NEGATIVE) 10/15/17 22:45 U Benzodiazepines Scrn NEGATIVE (NEGATIVE) 10/15/17 22:45 U Cocaine Metab Screen NEGATIVE (NEGATIVE) 10/15/17 22:45 U Cannabinoids Screen POSITIVE (NEGATIVE) H 10/15/17 22:45 ED Assessment - Assessment General Assessment: Abdominal pain Substance abuse Assessment/Comments:: CBC, CMP UA, urine drug screen GC DNA probe Toradol 30mg IM D/c home F/u PCP or return to ER if symptoms worsen ED Septic Shock - . Is Septic Shock (SBP<90, OR Lactate>4 mmol\L) present?: No - <6hrs of presentation: Vital Signs: Vital Signs - 8 hr 10/15/17 22:20 Temp 97.9 F HR 80 RR 18 BP 121/70 O2 Sat % 98 ED Reassessment (Disposition) - Reassessment Reassessment Condition:: Improved - Patient Disposition Discharge/Transfer:: Home ED Discharge Plan - Patient Disposition Admit/Discharge/Transfer: PT DISCHARGED HOME Condition at Disposition: Improved Instructions: Abdominal Pain, [id number]
[2017-10-15 23:06] LABS: URINE MICROSCOPIC INDICATED? YES; URINE SOURCE RANDOM
[2017-10-15 23:12] LABS: % BASOPHILS 0.8 % (0.0-2.0); % EOSINOPHILS 1.3 % (0.0-5.0); % LYMPHOCYTES 22.6 % (20.0-50.0); % MONOCYTES 11.7 % (2.0-10.0); % NEUTROPHILS 63.6 % (40.0-80.0); BASOPHILE ABSOLUTE 0.1 Th/cumm (0-0.2); EOSINOPHILE ABSOLUTE 0.1 Th/cmm (0.1-0.4); HEMATOCRIT 42.8 % (41.0-60); HEMOGLOBIN 14.6 gm/dL (12-16); LYMPHOCYTE ABSOLUTE 1.9 Th/cmm (1.5-3.0); MEAN CELL VOLUME 89.3 fl (80-99); MEAN CORPUSCULAR HEMOGLOBIN 30.5 pg (26.0-30.0); MEAN CORPUSCULAR HGB CONC 34.2 pg (28.0-36.0); MEAN PLATELET VOLUME 10.8 fl; NEUTROPHILE ABSOLUTE 5.5 Th/cmm (1.8-8.0); PLATELET COUNT 187 Th/cmm (150-400); RED CELL DISTRIBUTION WIDTH 12.2 % (11.5-20.0); WHITE BLOOD COUNT 8.6 Th/cmm (4.8-10.8)
[2017-10-15 23:32] LABS: URINE BILIRUBIN NEGATIVE (NEGATIVE); URINE BLOOD NEGATIVE (NEGATIVE); URINE GLUCOSE (UA) NEGATIVE (NEGATIVE); URINE KETONE NEGATIVE (NEGATIVE); URINE LEUKOCYTE ESTERASE NEGATIVE (NEGATIVE); URINE NITRATE NEGATIVE (NEGATIVE); URINE PH 6.5 (4.6 - 8.0); URINE PROTEIN NEGATIVE (NEGATIVE)
[2017-10-15 23:36] LABS: URINE CLARITY CLEAR (CLEAR); URINE COLOR YELLOW; URINE EPITHELIAL CELLS OCCASIONAL /lpf (FEW); URINE RBC NONE SEEN /hpf (0-5); URINE WBC 0-2 /hpf (0-5)
[2017-10-15 23:37] LABS: URINE BACTERIA OCCASIONAL /hpf (NONE SEEN)
[2017-10-15 23:45] LABS: ALB/GLOB RATIO 1.6 (1.0-1.8); ALBUMIN 4.1 gm/dL (4.2-5.5); ALKALINE PHOSPHATASE 58 U/L (34-104); ANION GAP 10.9 (7.0-16.0); BILIRUBIN,TOTAL 0.4 mg/dL (0.3-1.0); BUN - UREA NITROGEN 16 mg/dL (7-25); CALCIUM SERUM 8.9 mg/dL (8.6-10.3); CARBON DIOXIDE 27.3 mEq/L (21.0-31.0); CHLORIDE 105 mEq/L (98-107); CREATININE - SERUM 0.8 mg/dL (0.7-1.3); GFR AFRICAN-AMERICAN > 60.0 ml/min (>90); GFR NON AFRICAN-AMERICAN > 60.0 ml/min; GLUCOSE 84 mg/dL (70-105); LIPASE 31 U/L (11-82); POTASSIUM SERUM 4.2 mEq/L (3.5-5.1); SGOT 12 U/L (13-39); SGPT/ALT 10 U/L (7-52); SODIUM SERUM 139 mEq/L (136-145); TOTAL PROTEIN,SERUM 6.6 gm/dL (6.0-8.3)
[2017-10-15 23:53] LABS: AMPHETAMINE URINE NEGATIVE (NEGATIVE); BARBITURATES URINE NEGATIVE (NEGATIVE); BENZODIAZEPINES QUAL URINE NEGATIVE (NEGATIVE); CANNABINOID THC POSITIVE (NEGATIVE); COCAINE METABOLITE QUAL URINE NEGATIVE (NEGATIVE); METHADONE URINE NEGATIVE (NEGATIVE); METHAMPHETAMINES QUAL URINE NEGATIVE (NEGATIVE); OPIATES (MORPHINE) QUAL. URINE NEGATIVE (NEGATIVE); PHENCYCLIDINE (PCP) URINE NEGATIVE (NEGATIVE); TRICYCLICS (TCA) QUAL. URINE NEGATIVE (NEGATIVE)
== END 2017-10-16 00:55 | disposition home or self-care (01) ==
LOC: ER 22:11
DX: R10.30 Lower abdominal pain, unspecified (principal); N50.82 Scrotal pain; F17.200 Nicotine dependence, unspecified, uncomplicated; F12.90 Cannabis use, unspecified, uncomplicated
CPT/HCPCS: 99284; 96372; 36415; 80307; 85025; 83690; 80053; 81001; J1885; Z7502

== ENCOUNTER 2017-12-04 01:20 | Emergency (ER) | payer MEDICAID ==
--- NOTE | 2017-12-04 01:33 | ED Physician Chart ---
ED Chief Complaint/HPI - Patient Information Date Seen:: 12/04/17 Time Seen:: 01:31 Chief Complaint:: Right hand pain History of Present Illness:: 22 yo male had right hand pain and swelling after a car trunk lid hit his right hand about one day ago. He had weak right hand gripping due to pain and swelling. Allergies:: Allergies Allergy/AdvReac Type Severity Reaction Status Date / Time No Known Allergies Allergy Verified 10/15/17 22:23 ED Review of Systems - Review of Systems General/Constitutional: No fever, No chills Skin: Skin lesions Head: No headache Eyes: No pain ENT: No earache Neck: No neck pain Cardio Vascular: No chest pain Pulmonary: No SOB GI: No nausea, No vomiting Musculoskeletal: Bone or joint pain Neurological: No focal symptoms ED Past Medical History - Past Medical History Past Medical History: No significant medical hx Social History: Smoker, Alcohol, No Drug Use Surgical History: None Family Medical History - Family Member Mother History Unknown: Yes Ethnicity: Living Status: Still Living Hx Family Cancer: No Hx Family Coronary Artery Disease: No Hx Family Congestive Heart Failure: No Hx Family Hypertension: No Hx Family Stroke: No Hx Family Diabetes: No Hx Family Seizures: No Hx Family Dementia: No Hx Family HIV: No Hx Family Hepatitis: No Hx Family Psychiatric Problems: No ED Physical Exam - Physical Examination General/Constitutional: Awake Head: Atraumatic Eyes: PERRL ENMT: Nasal exam nl Neck: No nuchal rigidity Respiratory: Clear to Auscultation Cardio Vascular: RRR, No murmur, gallop, rubs, NL S1 S2 GI: No tenderness/rebounding/guarding Other Extremities comments:: Right hand tenderness and swelling in the ulnar half of the dorsal hand. Neuro/Psych: No focal deficits ED Labs/Radiology/EKG Results - Radiology Results Results: Right hand X ray: no evidence of acute fracture ED Assessment - Assessment General Assessment: Right hand contusion Assessment/Comments:: Right hand X ray Ibuprofen 800mg PO D/c home Ibuprofen 400mg q12h for 7 days F/u PCP or return to ER if symptoms worsen ED Septic Shock - . Is Septic Shock (SBP<90, OR Lactate>4 mmol\L) present?: No ED Reassessment (Disposition) - Reassessment Reassessment Condition:: Improved - Patient Disposition Discharge/Transfer:: Home ED Discharge Plan - Patient Disposition Admit/Discharge/Transfer: PT DISCHARGED HOME Condition at Disposition: Stable Instructions: Hand Contusion Additional Instructions: follow up with your primary medical doctor thomas
--- NOTE | 2017-12-04 08:33 | Diagnostic Imaging Report ---
Right hand 3 views Indication: Trauma Comparison: none Findings: No evidence of acute fracture or dislocation. No significant focal soft tissue swelling. 3 mm bone is seen within the first distal phalanx. Impression: No evidence of an acute fracture. In the setting of trauma, if clinical symptoms persist and there is continued concern for an occult fracture, follow up exams in 5-7 days is suggested.
== END 2017-12-04 02:42 | disposition home or self-care (01) ==
LOC: ER 01:20
DX: S60.221A Contusion of right hand, initial encounter (principal); M25.441 Effusion, right hand; F17.200 Nicotine dependence, unspecified, uncomplicated; W22.8XXA Striking against or struck by other objects, initial encounter; Y93.89 Activity, other specified; Y92.89 Other specified places as the place of occurrence of the external cause; Y99.8 Other external cause status
CPT/HCPCS: 73130-TC-RT; Z7502

== ENCOUNTER 2018-04-07 17:42 | Emergency (ER) | payer SELFPAY ==
--- NOTE | 2018-04-07 19:26 | ED Physician Chart ---
ED Chief Complaint/HPI - Patient Information Date Seen:: 04/07/18 Time Seen:: 17:54 Chief Complaint:: groin pain History of Present Illness:: groin pain Allergies:: Allergies Allergy/AdvReac Type Severity Reaction Status Date / Time No Known Allergies Allergy Verified 10/15/17 22:23 Vitals:: Vital Signs - 8 hr 04/07/18 17:54 Temp 98.7 F HR 97 RR 22 BP 122/85 O2 Sat % 99 Review:: Nurse's Note Reviewed ED Review of Systems - Review of Systems General/Constitutional: No fever, No chills, No weight loss, No weakness, No diaphoresis, No edema, No loss of appetite Skin: No skin lesions, No rash, No bruising Head: No headache, No light-headedness Eyes: No loss of vision, No pain, No diplopia ENT: No earache, No nasal drainage, No sore throat, No tinnitus Neck: No neck pain, No swelling, No thyromegaly, No stiffness, No mass noted Cardio Vascular: No chest pain, No palpitations, No PND, No orthopnea, No edema Pulmonary: No SOB, No cough, No sputum, No wheezing GI: No nausea, No vomiting, No diarrhea, No pain, No melena, No hematochezia, No constipation, No hematemesis G/U: Other (groin pain) Musculoskeletal: No bone or joint pain, No back pain, No muscle pain Endocrine: No polyuria, No polydipsia Psychiatric: No prior psych history, No depression, No anxiety, No suicidal ideation Hematopoietic: No bruising, No lymphadenopathy Allergic/Immuno: No urticaria, No angioedema Neurological: No syncope, No focal symptoms, No weakness, No paresthesia, No headache, No seizure, No dizziness, No confusion, No vertigo Family Medical History - Family Member Mother History Unknown: Yes Ethnicity: Living Status: Still Living Hx Family Cancer: No Hx Family Coronary Artery Disease: No Hx Family Congestive Heart Failure: No Hx Family Hypertension: No Hx Family Stroke: No Hx Family Diabetes: No Hx Family Seizures: No Hx Family Dementia: No Hx Family HIV: No Hx Family Hepatitis: No Hx Family Psychiatric Problems: No ED Assessment - Assessment General Assessment: patient eloped before examined. ED Septic Shock - . Is Septic Shock (SBP<90, OR Lactate>4 mmol\L) present?: No - <6hrs of presentation: Vital Signs: Vital Signs - 8 hr 04/07/ 17:54 Temp 98.7 F HR 97 RR 22 BP 122/85 O2 Sat % 99 ED Reassessment (Disposition) - Reassessment Reassessment Condition:: Unchanged - Diagnosis Diagnosis:: groin pain - Patient Disposition Discharge/Transfer:: Elope/AWOL Condition at Disposition:: Stable, Unchanged
== END 2018-04-07 19:15 | disposition left against medical advice (07) ==
LOC: ER 17:42
DX: R10.30 Lower abdominal pain, unspecified (principal)

== ENCOUNTER 2018-04-11 01:15 | Emergency (ER) | payer SELFPAY ==
[2018-04-11] MEDS ORDERED: Sulfamethoxazole/TMP 800/160mg Tab PO ONE (01:46)
[2018-04-11] MEDS ORDERED: Sulfamethoxazole/TMP 800/160mg Tab ONE (01:46)
--- NOTE | 2018-04-11 01:52 | ED Physician Chart ---
ED Chief Complaint/HPI - Patient Information Date Seen:: 04/11/18 Time Seen:: 01:30 Chief Complaint:: left groin pain History of Present Illness:: Patient's had left groin pain for 5 days. He saw a private physician 3 days ago and was given a shot of antibiotics and prescribed doxycycline 100 mg twice a day for 10 days. No no urethral discharge. No penile lesions. Patient does have urinary urgency with some urinary incontinence. Patient shaved his pubic area about 1 month ago. No recent foreign travel. Is sexually active. Allergies:: Allergies Allergy/AdvReac Type Severity Reaction Status Date / Time No Known Allergies Allergy Verified 10/15/17 22:23 Vitals:: Vital Signs - 8 hr 04/11/18 01:15 Temp 98.9 F HR 98 RR 18 BP 131/94 O2 Sat % 99 Historian:: Patient Review:: Nurse's Note Reviewed ED Review of Systems - Review of Systems General/Constitutional: No fever, No chills Skin: No skin lesions Head: No headache Eyes: No loss of vision ENT: No earache Neck: No neck pain Cardio Vascular: No chest pain, No palpitations Pulmonary: No SOB GI: No nausea, No vomiting, No diarrhea G/U: Frequency Musculoskeletal: No bone or joint pain Endocrine: No polyuria Psychiatric: No prior psych history Hematopoietic: No bruising Allergic/Immuno: No urticaria Neurological: No syncope ED Past Medical History - Past Medical History Past Medical History: No significant medical hx Family History: Diabetes Melitus, HTN Social History: Smoker, Alcohol, Other Employment:: Smokes 1 pack of cigarettes a day; drinks alcohol occasionally Surgical History: None Psychiatricy History: None Medication: Reviewed Family Medical History - Family Member Mother History Unknown: Yes Ethnicity: Living Status: Still Living Hx Family Cancer: No Hx Family Coronary Artery Disease: No Hx Family Congestive Heart Failure: No Hx Family Hypertension: No Hx Family Stroke: No Hx Family Diabetes: No Hx Family Seizures: No Hx Family Dementia: No Hx Family HIV: No Hx Family Hepatitis: No Hx Family Psychiatric Problems: No ED Physical Exam - Physical Examination General/Constitutional: Awake, Well-developed, well-nourished, Alert, No distress, GCS 15, Non-toxic appearing, Ambulatory Head: Atraumatic Eyes: Lids, conjuctiva normal, PERRL, EOMI Skin: Nl inspection, No rash, No skin lesions, No ecchymosis, Well hydrated, No lymphadenopathy ENMT: External ears, nose nl, Nasal exam nl, Lips, teeth, gums nl Neck: Nontender, Full ROM w/o pain, No JVD, No nuchal rigidity, No bruit, No mass, No stridor Respiratory: Nl effort/Exclusion, Clear to Auscultation, No Wheeze/Rhonchi/Rales Cardio Vascular: RRR, No murmur, gallop, rubs, NL S1 S2 GI: No tenderness/rebounding/guarding, No organomegaly, No hernia, Normal BS's, Nondistended, No mass/bruits, No McBurney tenderness : No CVA tenderness, NL external genitalia, No discharge Other comments:: Right testes about 3 x 2.5 cm; left testes about 3 x 2 CM and of normal firmness. No penile lesions. Left groin: About 6 x 4 cm area of contiguous 1 cm tender lymph nodes. 1 cm tender lymph node right groin. No redness of skin overlying tender lymph nodes. Extremities: No tenderness or effusion, Full ROM, normal strength in all extremities, No edema, Normal digits & nails Neuro/Psych: Alert/oriented, DTR's symmetric, Normal sensory exam, Normal motor strength, Judgement/insight normal, Mood normal, Normal gait, No focal deficits Misc: Normal back, No paraspinal tenderness ED Assessment - Assessment General Assessment: Tender inguinal lymph nodes may be MRSA. Suggested patient continue the doxycycline 100 mg twice a day and also am prescribing Bactrim DS No. 20 to take one twice a day to cover MRSA. Suggested patient apply warm compress. ED Septic Shock - . Is Septic Shock (SBP<90, OR Lactate>4 mmol\L) present?: No - <6hrs of presentation: Vital Signs: Vital Signs - 8 hr 04/11/18 01:15 Temp 98.9 F HR 98 RR 18 BP 131/94 O2 Sat % 99 ED Reassessment (Disposition) - Reassessment Reassessment Condition:: Unchanged - Diagnosis Diagnosis:: Inguinal lymphadenopathy - Aftercare/Follow up Instructions Aftercare/Follow-Up Instructions:: Refer to Discharge Instructions Medication Prescribed:: Bactrim DS No. 20 to take one twice a day - Patient Disposition Discharge/Transfer:: Home Condition at Disposition:: Stable, Unchanged
== END 2018-04-11 02:16 | disposition home or self-care (01) ==
LOC: ER 01:15
DX: R59.0 Localized enlarged lymph nodes (principal); R10.32 Left lower quadrant pain; F17.210 Nicotine dependence, cigarettes, uncomplicated
CPT/HCPCS: Z7502

== ENCOUNTER 2018-06-08 19:20 | Emergency (ER) | payer SELFPAY ==
--- NOTE | 2018-06-08 20:00 | ED Physician Chart ---
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 Allergies:: Allergies Allergy/AdvReac Type Severity Reaction Status Date / Time No Known Allergies Allergy Verified 10/15/17 22:23 Vitals:: Vital Signs - 8 hr 06/08/18 19:20 Temp 98.2 F HR 89 RR 17 BP 131/81 O2 Sat % 100 ED Review of Systems - Review of Systems Skin: Other (superficial laceration distal digit 1.3 cm well approximated) ED Past Medical History - Past Medical History Past Medical History: No significant medical hx Family Medical History - Family Member Mother History Unknown: Yes Ethnicity: Living Status: Still Living Hx Family Cancer: No Hx Family Coronary Artery Disease: No Hx Family Congestive Heart Failure: No Hx Family Hypertension: No Hx Family Stroke: No Hx Family Diabetes: No Hx Family Seizures: No Hx Family Dementia: No Hx Family HIV: No Hx Family Hepatitis: No Hx Family Psychiatric Problems: No ED Physical Exam - Physical Examination Other Skin comments:: superficial laceration 1.3 cm distal lt mid finger well approx ED Assessment - Assessment General Assessment: laceration distal lt mid finger ED Septic Shock - . Is Septic Shock (SBP<90, OR Lactate>4 mmol\L) present?: No - <6hrs of presentation: Vital Signs: Vital Signs - 8 hr 06/08/18 19:20 Temp 98.2 F HR 89 RR 17 BP 131/81 O2 Sat % 100 ED Reassessment (Disposition) - Reassessment Reassessment:: distal lt middle finger laceration - Diagnosis Diagnosis:: lt mid finger finger laceration - Patient Disposition Discharge/Transfer:: Home Condition at Disposition:: Stable
== END 2018-06-08 20:30 | disposition home or self-care (01) ==
LOC: ER 19:20
DX: S61.213A Laceration without foreign body of left middle finger without damage to nail, initial encounter (principal); W26.0XXA Contact with knife, initial encounter; Y93.89 Activity, other specified; Y92.009 Unspecified place in unspecified non-institutional (private) residence as the place of occurrence of the external cause; Y99.8 Other external cause status
CPT/HCPCS: 12001; Z7502

== ENCOUNTER 2018-08-23 20:06 | Emergency (ER) | payer MEDICAID ==
--- NOTE | 2018-08-23 20:21 | ED Physician Chart ---
ED Chief Complaint/HPI - Patient Information Date Seen:: 08/23/18 Time Seen:: 20:16 Chief Complaint:: back pain History of Present Illness:: this patient states that his lower back is hurting with left lower extremity radiation of the pain. he denies heavy lifting and denies falling. Allergies:: Allergies Allergy/AdvReac Type Severity Reaction Status Date / Time No Known Allergies Allergy Verified 10/15/17 22:23 Historian:: Patient Review:: Nurse's Note Reviewed, Old Chart Reviewed ED Review of Systems - Review of Systems General/Constitutional: No fever, No chills, No weight loss, No weakness, No diaphoresis, No edema, No loss of appetite Skin: No skin lesions, No rash, No bruising Head: No headache, No light-headedness Eyes: No loss of vision, No pain, No diplopia ENT: No earache, No nasal drainage, No sore throat, No tinnitus Neck: No neck pain, No swelling, No thyromegaly, No stiffness, No mass noted Cardio Vascular: No chest pain, No palpitations, No PND, No orthopnea, No edema Pulmonary: No SOB, No cough, No sputum, No wheezing GI: No nausea, No vomiting, No diarrhea, No pain, No melena, No hematochezia, No constipation, No hematemesis G/U: No dysuria, No frequency, No hematuria Musculoskeletal: No bone or joint pain, Back pain, No muscle pain Endocrine: No polyuria, No polydipsia Psychiatric: No prior psych history, No depression, No anxiety, No suicidal ideation Hematopoietic: No bruising, No lymphadenopathy Allergic/Immuno: No urticaria, No angioedema Neurological: No syncope, No focal symptoms, No weakness, No paresthesia, No headache, No seizure, No dizziness, No confusion, No vertigo ED Past Medical History - Past Medical History Obtainable: Yes Past Medical History: No significant medical hx Family History: None Social History: Non Smoker, No Alcohol, No Drug Use, Employed Surgical History: None Psychiatricy History: None Medication: Reviewed Family Medical History - Family Member Mother History Unknown: Yes Ethnicity: Living Status: Still Living Hx Family Cancer: No Hx Family Coronary Artery Disease: No Hx Family Congestive Heart Failure: No Hx Family Hypertension: No Hx Family Stroke: No Hx Family Diabetes: No Hx Family Seizures: No Hx Family Dementia: No Hx Family HIV: No Hx Family Hepatitis: No Hx Family Psychiatric Problems: No ED Physical Exam - Physical Examination General/Constitutional: Awake, Well-developed, well-nourished, Alert, No distress, GCS 15, Non-toxic appearing, Ambulatory Head: Atraumatic Eyes: Lids, conjuctiva normal, PERRL, EOMI Skin: Nl inspection, No rash, No skin lesions, No ecchymosis, Well hydrated, No lymphadenopathy ENMT: External ears, nose nl, Nasal exam nl, Lips, teeth, gums nl Neck: Nontender, Full ROM w/o pain, No JVD, No nuchal rigidity, No bruit, No mass, No stridor Respiratory: Nl effort/Exclusion, Clear to Auscultation, No Wheeze/Rhonchi/Rales Cardio Vascular: RRR, No murmur, gallop, rubs, NL S1 S2 GI: No tenderness/rebounding/guarding, No organomegaly, No hernia, Normal BS's, Nondistended, No mass/bruits, No McBurney tenderness : No CVA tenderness Extremities: No tenderness or effusion, Full ROM, normal strength in all extremities, No edema, Normal digits & nails Neuro/Psych: Alert/oriented, DTR's symmetric, Normal sensory exam, Normal motor strength, Judgement/insight normal, Mood normal, Normal gait, No focal deficits Misc: Normal back, No paraspinal tenderness ED Labs/Radiology/EKG Results - Radiology Results Results: x-ray of the lower back = nad ED Assessment - Assessment General Assessment: recurrent lower back pain ED Septic Shock - . Is Septic Shock (SBP<90, OR Lactate>4 mmol\L) present?: No ED Reassessment (Disposition) - Reassessment Reassessment Condition:: Improved - Diagnosis Diagnosis:: back pain hematuria - Aftercare/Follow up Instructions Aftercare/Follow-Up Instructions:: Counseled pt regarding lab results/diagnosis & need follow up, Refer to Discharge Instructions, Counseled pt & family regarding lab results/diagnosis & need follow up Medication Prescribed:: motrin [id number] - Patient Disposition Discharge/Transfer:: Home Condition at Disposition:: Improved
[2018-08-23 20:51] LABS: URINE SOURCE CLEAN C
[2018-08-23 20:56] LABS: URINE BILIRUBIN NEGATIVE (NEGATIVE); URINE BLOOD SMALL (NEGATIVE); URINE GLUCOSE (UA) NEGATIVE (NEGATIVE); URINE KETONE NEGATIVE (NEGATIVE); URINE LEUKOCYTE ESTERASE NEGATIVE (NEGATIVE); URINE MICROSCOPIC INDICATED? YES; URINE NITRATE NEGATIVE (NEGATIVE); URINE PROTEIN NEGATIVE (NEGATIVE)
[2018-08-23 21:06] LABS: URINE CLARITY HAZY (CLEAR); URINE COLOR YELLOW
[2018-08-23 21:07] LABS: URINE EPITHELIAL CELLS NONE SEEN /lpf (FEW)
[2018-08-23 21:08] LABS: URINE BACTERIA MODERATE /hpf (NONE SEEN); URINE RBC 0-2 /hpf (0-5)
[2018-08-23 21:09] LABS: URINE AMORPHOUS SEDIMENT MANY URATES (NONE SEEN)
[2018-08-23 21:13] LABS: AMPHETAMINE URINE POSITIVE (NEGATIVE); BARBITURATES URINE NEGATIVE (NEGATIVE); CANNABINOID THC POSITIVE (NEGATIVE); COCAINE METABOLITE QUAL URINE NEGATIVE (NEGATIVE); METHADONE URINE NEGATIVE (NEGATIVE); METHAMPHETAMINES QUAL URINE NEGATIVE (NEGATIVE); OPIATES (MORPHINE) QUAL. URINE NEGATIVE (NEGATIVE); PHENCYCLIDINE (PCP) URINE NEGATIVE (NEGATIVE); TRICYCLICS (TCA) QUAL. URINE NEGATIVE (NEGATIVE)
[2018-08-23 21:14] LABS: BENZODIAZEPINES QUAL URINE NEGATIVE (NEGATIVE)
--- NOTE | 2018-08-24 11:06 | Diagnostic Imaging Report ---
Lumbar spine 3 views Indication: pain Comparison: Lumbar spine x-rays on to [id number] Findings: No acute compression fracture or subluxation. Mild generalized degenerative changes are noted greatest along the facet joints of the lower lumbar spine. The SI joints are preserved. Impression: No evidence of an acute compression fracture or subluxation. Mild generalized degenerative changes greatest in the lower lumbar spine. If necessary MRI follow-up may be obtained for further assessment. In the setting of trauma, if clinical symptoms persist and there is continued concern for an occult fracture, follow up exams in 5-7 days is suggested.
== END 2018-08-23 21:20 | disposition home or self-care (01) ==
LOC: ER 20:06
DX: M54.5 Low back pain (principal); R31.9 Hematuria, unspecified
CPT/HCPCS: 99284; 96372; 72110; 80307; 87086; 81001; J1885

== ENCOUNTER 2018-11-14 13:00 | Emergency (ER) | payer SELFPAY ==
[2018-11-14] MEDS ORDERED: Sodium Chloride 0.9% 1,000 ML IV ONE (13:10)
[2018-11-14 13:30] LABS: % EOSINOPHILS 0.6 % (0.0-5.0)
--- NOTE | 2018-11-14 13:30 | ED Physician Chart ---
ED Chief Complaint/HPI - Patient Information Date Seen:: 11/14/18 Time Seen:: 13:12 Chief Complaint:: ABDOMINAL PAIN History of Present Illness:: THIS IS A 23 YO MALE WITH THE SUDDEN ONSET OF GENERALIZED ABDOMINAL PAIN THAT STARTED LAST NIGHT WITH NAUSEA BUT NO VOMITING. THE PAIN IS 7/10 AND HE DENIES DIARRHEA. HE DENIES PREVIOUS SURGERY AND OTHER ILLNESSES Allergies:: Allergies Allergy/AdvReac Type Severity Reaction Status Date / Time No Known Allergies Allergy Verified 08/23/18 20:18 Vitals:: Vital Signs - 8 hr 11/14/18 13:07 Temp 97.8 F HR 69 RR 15 BP 129/97 O2 Sat % 97 Historian:: Patient Family Medical History - Family Member Mother History Unknown: Yes Ethnicity: Living Status: Still Living Hx Family Cancer: No Hx Family Coronary Artery Disease: No Hx Family Congestive Heart Failure: No Hx Family Hypertension: No Hx Family Stroke: No Hx Family Diabetes: No Hx Family Seizures: No Hx Family Dementia: No Hx Family HIV: No Hx Family Hepatitis: No Hx Family Psychiatric Problems: No ED Labs/Radiology/EKG Results - Radiology Results Results: CHEST X-RAY = NAD - EKG Interpretations EKG Time:: 13:27 Rate & Rhythm: RATE= 73, SINUS [place]: RIGHT ED Assessment - Assessment General Assessment: GASTROENTERITIS MILD CONSTIPATION ED Septic Shock - . Is Septic Shock (SBP<90, OR Lactate>4 mmol\L) present?: No - <6hrs of presentation: Vital Signs: Vital Signs - 8 hr 11/14/18 13:07 Temp 97.8 F HR 69 RR 15 BP 129/97 O2 Sat % 97 ED Reassessment (Disposition) - Reassessment Reassessment Condition:: Improved - Diagnosis Diagnosis:: GASTROENTERITIS MILD CONSTIPATION - Aftercare/Follow up Instructions Aftercare/Follow-Up Instructions:: Counseled pt regarding lab results/diagnosis & need follow up, Refer to Discharge Instructions, Counseled pt & family regarding lab results/diagnosis & need follow up Medication Prescribed:: PERICOLACE - Patient Disposition Discharge/Transfer:: Home Condition at Disposition:: Improved
[2018-11-14 13:40] LABS: % LYMPHOCYTES 12.5 % (20.0-50.0); % MONOCYTES 6.5 % (2.0-10.0); % NEUTROPHILS 80.4 % (40.0-80.0); EOSINOPHILE ABSOLUTE 0.1 Th/cmm (0.1-0.4); HEMATOCRIT 45.2 % (41.0-60); HEMOGLOBIN 15.3 gm/dL (12-16); LYMPHOCYTE ABSOLUTE 1.3 Th/cmm (1.5-3.0); MEAN CELL VOLUME 86.9 fl (80-99); MEAN CORPUSCULAR HEMOGLOBIN 29.5 pg (26.0-30.0); MEAN CORPUSCULAR HGB CONC 33.9 pg (28.0-36.0); MONOCYTE ABSOLUTE 0.7 Th/cmm (0.3-1.0); NEUTROPHILE ABSOLUTE 8.1 Th/cmm (1.8-8.0); PLATELET COUNT 184 Th/cmm (150-400); RED CELL DISTRIBUTION WIDTH 12.3 % (11.5-20.0); WHITE BLOOD COUNT 10.2 Th/cmm (4.8-10.8)
[2018-11-14 13:44] LABS: INR 0.94 (0.5-1.4)
--- NOTE | 2018-11-14 13:51 | Diagnostic Imaging Report ---
Portable chest x-ray History: Pain Allowing for portable technique the heart size is normal. No focal pulmonary parenchymal processes. No hilar or mediastinal abnormalities. Impression: No acute abnormalities.
[2018-11-14 13:52] LABS: ALB/GLOB RATIO 1.4 (1.0-1.8); ALBUMIN 4.2 gm/dL (4.2-5.5); ALKALINE PHOSPHATASE 69 U/L (34-104); ANION GAP 12.6 (7.0-16.0); BILIRUBIN,TOTAL 0.6 mg/dL (0.3-1.0); BUN - UREA NITROGEN 11 mg/dL (7-25); CALCIUM SERUM 9.1 mg/dL (8.6-10.3); CARBON DIOXIDE 25.4 mEq/L (21.0-31.0); CHLORIDE 102 mEq/L (98-107); CHOLESTEROL 165 mg/dL (<200); CREATININE - SERUM 0.7 mg/dL (0.7-1.3); GFR AFRICAN-AMERICAN > 60.0 ml/min (>90); GFR NON AFRICAN-AMERICAN > 60.0 ml/min; GLUCOSE 102 mg/dL (70-105); HDL -HIGH DENSITY LIPOPROTEIN 53 mg/dL (23-92); SGOT 24 U/L (13-39); SGPT/ALT 23 U/L (7-52); SODIUM SERUM 136 mEq/L (136-145); TOTAL PROTEIN,SERUM 7.2 gm/dL (6.0-8.3); TRIGLYCERIDES 95 mg/dL (<150)
--- NOTE | 2018-11-14 14:01 | Diagnostic Imaging Report ---
CT scan abdomen and pelvis without intravenous contrast HISTORY: Pain Total DLP equals 398 CTDI equals 8.0 Axial sections were obtained from the xiphoid process down to the pubic symphysis. The liver exhibits a homogeneous parenchyma. No focal lesions. The spleen appears normal. No abnormalities are seen in the region of the pancreas. No focal renal lesions. No hydronephrosis. The exam of the pelvis demonstrates preservation of normal fat planes. No abnormal soft tissue masses are seen. There is a moderately distended stool-filled ascending and transverse colon. The appendix cannot be clearly visualized. IMPRESSION: 1. Moderately distended stool-filled ascending and transverse colon 2. No other definite acute abnormalities
[2018-11-14 14:35] LABS: URINE SOURCE CLEAN C
[2018-11-14 14:40] LABS: URINE BILIRUBIN NEGATIVE (NEGATIVE); URINE BLOOD SMALL (NEGATIVE); URINE GLUCOSE (UA) NEGATIVE (NEGATIVE); URINE KETONE NEGATIVE (NEGATIVE); URINE LEUKOCYTE ESTERASE NEGATIVE (NEGATIVE); URINE MICROSCOPIC INDICATED? YES; URINE NITRATE NEGATIVE (NEGATIVE); URINE PH 6.5 (4.6 - 8.0); URINE PROTEIN NEGATIVE (NEGATIVE); URINE UROBILINOGEN 0.2 E.U./dL (0.2 - 1.0)
[2018-11-14 15:01] LABS: URINE CLARITY CLEAR (CLEAR); URINE COLOR YELLOW
[2018-11-14 15:08] LABS: URINE BACTERIA FEW /hpf (NONE SEEN); URINE EPITHELIAL CELLS NONE SEEN /lpf (FEW); URINE RBC 0-2 /hpf (0-5)
[2018-11-14 15:16] LABS: AMPHETAMINE URINE POSITIVE (NEGATIVE); METHAMPHETAMINES QUAL URINE POSITIVE (NEGATIVE)
[2018-11-14 15:17] LABS: BARBITURATES URINE NEGATIVE (NEGATIVE); BENZODIAZEPINES QUAL URINE NEGATIVE (NEGATIVE); CANNABINOID THC POSITIVE (NEGATIVE); COCAINE METABOLITE QUAL URINE NEGATIVE (NEGATIVE); METHADONE URINE NEGATIVE (NEGATIVE); OPIATES (MORPHINE) QUAL. URINE NEGATIVE (NEGATIVE); PHENCYCLIDINE (PCP) URINE NEGATIVE (NEGATIVE); TRICYCLICS (TCA) QUAL. URINE NEGATIVE (NEGATIVE)
== END 2018-11-14 15:15 | disposition home or self-care (01) ==
LOC: ER 13:00
DX: K52.9 Noninfective gastroenteritis and colitis, unspecified (principal); K59.00 Constipation, unspecified
CPT/HCPCS: 99284; 96374; 93005; 71045; 74176; 36415; 80307; 84443; 86592; 85025; 85610; 85730; 81001; 80053; 80061; 87040 ×2; J1885